=== PATIENT | female | born 1955 | race Caucasian/White ===

== ENCOUNTER 2016-02-23 07:17 | Outpatient (CLI) | payer BC, OTHER ==
[~2016-02-23 07:17] MED LIST: ABILIFY5 MG PO; ADDERALL XR 2020 MG PO; ADDERALL20 MG PO; AMPYRA10 MG PO; Adderall XR PO; BACLOFEN10 MG PO; BACTRIM,SEPT1 TABLET PO; Benadryl IV; CHEWABLE-VITE1 EACH PO; CLEOCIN300 MG PO; COPAXONE40 MG/1 ML SC; CYANOCOBAL1000 MCG/2 IM; CYMBALTA60 MG PO; Copaxone SC; Cymbalta PO; DILAUDID4 MG PO; DURAGESIC75 MCG TD; ENDOCET 5-3251 EACH PO; Ecotrin PO; Feosol PO; K-DUR10 MEQ PO; K-DUR20 MEQ PO; LASIX40 MG PO; LUNESTA2 MG PO; Lasix PO; Levothroid,Synthroid PO; Lioresal PO; MIRAPEX ER0.75 MG PO; MIRAPEX ER2.25 MG PO; MIRAPEX0.25 MG PO; MODAFINIL200 MG PO; MULTIVI; Martinic IM; Micro-K,K-Tab,K-Dur, PO; Mirapex PO; NEXIUM40 MG PO; Nizoral 2% Cream TP; PROVIGIL200 MG PO; SENOKOT S,PE1 TABLET PO; SONATA10 MG PO; THERAGRAN1 TABLET PO; ULTRAM50 MG PO; VITAMIN D250000 UNIT PO; VITAMIN D5000 UNIT PO; Vitamin D PO; Vitamin D, Drisdol PO; vit b12; vit d
== END 2016-02-24 11:59 | disposition home or self-care (01) ==
LOC: NUC 07:17
DX: E05.90 Thyrotoxicosis, unspecified without thyrotoxic crisis or storm (principal)
CPT/HCPCS: 78014; 78999; A9512; A9531

== ENCOUNTER 2016-06-30 16:09 | Inpatient (IN) | payer BC, OTHER ==
[~2016-06-30] VITALS: Ht 172.7 cm; Wt 118.8 kg
[2016-06-30 17:21] LABS: EOSINOPHIL (%) 5.4 % (0-5); EOSINOPHIL COUNT 0.3 K/uL (0-0.3); HEMATOCRIT 43.5 % (36.0-46.0); IMMATURE GRANULOCYTE (%) 0.2 % (0.0-0.7); LYMPHOCYTE COUNT 1.1 K/uL (1.0-2.8); MCH 28.4 PG (29.0-34.0); MCV 88.8 FL (83-99); MONOCYTE (%) 9.1 % (3-12); MONOCYTE COUNT 0.4 K/uL (0-0.8); NEUTROPHIL (%) 62.5 % (45-76); PLATELET COUNT 128 K/uL (156-360); RBC DIS.WIDTH-CV 13.9 % (11.8-14.6); RBC DIS.WIDTH-SD 44.7 % (39-53); WHITE BLOOD COUNT 4.8 K/uL (4.1-10.2)
[2016-06-30 17:32] LABS: CHLORIDE 103 mEq/L (99-109); POTASSIUM 3.2 mEq/L (3.7-5.4); SODIUM 140 mEq/L (136-147)
[2016-06-30 17:33] LABS: MAGNESIUM 1.7 mg/dL (1.3-2.7)
[2016-06-30 17:34] LABS: GLUCOSE 121 mg/dL (70-99)
[2016-06-30 17:36] LABS: ANION GAP 10 MEQ/L (2-14)
[2016-06-30 17:38] LABS: GFR ESTIMATE (CALCULATED) > 59 mL/min/
[2016-06-30 17:39] LABS: UREA NITROGEN (BUN) 23 mg/dL (9-23)
[2016-06-30 17:42] LABS: TROP-I INTERPRETATION NEGATIVE; TROPONIN-I 0.02 ng/mL (0.0-0.30)
[2016-06-30] MEDS ORDERED: CYMBALTA60 MG PO (18:58)
[2016-06-30] MEDS ORDERED: LUNESTA3 MG PO (19:00)
[2016-06-30] MEDS ORDERED: MIRAPEX0.25 MG PO (19:02)
[2016-06-30] MEDS ORDERED: CYANOCOBAL1000 MCG/2 IM (19:03)
[2016-06-30] MEDS ORDERED: VITAMIN D310000 UNI1 PO (19:05)
[2016-06-30] MEDS ORDERED: DILAUDID4 MG PO (19:06)
[2016-06-30] MEDS ORDERED: FOLIC ACID1 MG PO (19:07)
[2016-06-30] MEDS ORDERED: KLOR-CON M2020 MEQ PO ×2 (19:07→19:08)
[2016-06-30 21:40] VITALS: BP 100/58
[2016-06-30 22:36] LABS: INTER. NORMALIZED RATIO 1.1; PROTHROMBIN TIME 10.9 (9.2-11.2); PTT 29.4 (25-32)
[2016-07-01] VITALS (7 sets, daily range): BP systolic 103–124; BP diastolic 52–59
[2016-07-01 07:34] LABS: INTER. NORMALIZED RATIO 1.1; PROTHROMBIN TIME 10.7 (9.2-11.2)
[2016-07-01 07:44] LABS: MCH 28.4 PG (29.0-34.0); MCHC 31.3 G/DL (30.0-36.0); MCV 90.9 FL (83-99); MEAN PLAT.VOLUME 12.2 uM^3 (9.5-12.4); RBC DIS.WIDTH-CV 13.9 % (11.8-14.6); RBC DIS.WIDTH-SD 46.3 % (39-53)
[2016-07-01 07:48] LABS: ALKALINE PHOSPHATASE 115 IU/L (3-129); ANION GAP 9 MEQ/L (2-14); CHLORIDE 102 MEQ/L (99-109); GFR ESTIMATE (CALCULATED) > 59 mL/min/; POTASSIUM 3.4 MEQ/L (3.7-5.4); SAMPLE HEMOLYSIS CHECK 0; SAMPLE ICTERIC CHECK 0; SAMPLE LIPEMIA CHECK 0; SODIUM 141 MEQ/L (136-147); TOTAL BILIRUBIN 0.7 MG/DL (0.0-1.0); UREA NITROGEN (BUN) 18 mg/dL (9-23)
[2016-07-01 07:50] LABS: GLUCOSE 83 mg/dL (70-99)
[2016-07-01 08:17] LABS: PLATELET COUNT 192 K/uL (156-360); RED BLOOD COUNT 3.52 M/uL (3.80-5.20); WHITE BLOOD COUNT 7.2 K/uL (4.1-10.2)
[2016-07-01 08:22] LABS: TROP-I INTERPRETATION NEGATIVE; TROPONIN-I 0.03 ng/mL (0.0-0.30)
[2016-07-01 15:20] LABS: TROP-I INTERPRETATION NEGATIVE; TROPONIN-I 0.02 ng/mL (0.0-0.30)
[2016-07-01 22:54] LABS: TROP-I INTERPRETATION NEGATIVE; TROPONIN-I 0.02 ng/mL (0.0-0.30)
[2016-07-02 04:22] VITALS: BP 118/68
[2016-07-02 07:38] VITALS: BP 112/55
[2016-07-02 07:46] LABS: HEMATOCRIT 30.5 % (36.0-46.0); MCH 29.1 PG (29.0-34.0); MCHC 31.5 G/DL (30.0-36.0); MCV 92.4 FL (83-99); MEAN PLAT.VOLUME 12.5 uM^3 (9.5-12.4); PLATELET COUNT 174 K/uL (156-360); RBC DIS.WIDTH-CV 14.2 % (11.8-14.6); RBC DIS.WIDTH-SD 47.9 % (39-53); WHITE BLOOD COUNT 5.8 K/uL (4.1-10.2)
[2016-07-02 08:39] LABS: INTER. NORMALIZED RATIO 1.1; PROTHROMBIN TIME 11.5 (9.2-11.2)
[2016-07-02] MEDS ORDERED: ELIQUIS5 MG PO ×2 (08:44→09:43)
[2016-07-02] MEDS ORDERED: LOPRESSOR25 MG PO (08:44)
[2016-07-02] MEDS ORDERED: HYDROMORPHONE HC4 MG PO (08:44)
[2016-07-02] MEDS ORDERED: FOLIC ACID1 MG PO (08:44)
[2016-07-02 11:23] VITALS: BP 111/58
== END 2016-07-02 12:04 | disposition home or self-care (01) | DRG 310 ==
LOC: EME 16:09 → EDOF 20:24 → 4EAST 20:24
PROVIDERS: Emergency Medicine; Internal Medicine
DX: I48.1 Persistent atrial fibrillation (principal); G35 Multiple sclerosis; J45.909 Unspecified asthma, uncomplicated; F32.9 Major depressive disorder, single episode, unspecified; M79.7 Fibromyalgia; G43.909 Migraine, unspecified, not intractable, without status migrainosus; K21.9 Gastro-esophageal reflux disease without esophagitis; E05.00 Thyrotoxicosis with diffuse goiter without thyrotoxic crisis or storm; E66.01 Morbid (severe) obesity due to excess calories; I10 Essential (primary) hypertension; Z96.652 Presence of left artificial knee joint; Z86.73 Personal history of transient ischemic attack (TIA), and cerebral infarction without residual deficits; Z98.84 Bariatric surgery status; Z87.891 Personal history of nicotine dependence; Z68.39 Body mass index [BMI] 39.0-39.9, adult
CPT/HCPCS: 71010; 80048; 80053; 83735; 83880; 84439; 84443; 84484; 85025; 85027; 85610; 85730; 93005; 93306; 99281; 99285; J1160; J3475; J7050

== ENCOUNTER 2016-09-02 07:32 | Day surgery (SDC) | payer OTHER, BC ==
[~2016-09-02] VITALS: Ht 172.7 cm; Wt 113.4 kg
[~2016-09-02 07:32] MED LIST changes: +ELIQUIS5 MG PO; +FOLIC ACID1 MG PO; +HYDROMORPHONE HC4 MG PO; +KLOR-CON M2020 MEQ PO; +LOPRESSOR25 MG PO; +LUNESTA3 MG PO; +METOPROLOL TART25 MG PO; +TERBINAFINE HC250 MG PO; +VITAMIN D310000 UNI1 PO
== END 2016-09-02 15:30 | disposition home or self-care (01) ==
LOC: CATH 07:32
DX: I42.0 Dilated cardiomyopathy (principal); I48.0 Paroxysmal atrial fibrillation; I27.2 Other secondary pulmonary hypertension; I34.0 Nonrheumatic mitral (valve) insufficiency; I36.1 Nonrheumatic tricuspid (valve) insufficiency; I11.0 Hypertensive heart disease with heart failure; I50.40 Unspecified combined systolic (congestive) and diastolic (congestive) heart failure; E66.9 Obesity, unspecified; Z68.39 Body mass index [BMI] 39.0-39.9, adult; G35 Multiple sclerosis; D64.9 Anemia, unspecified; G47.33 Obstructive sleep apnea (adult) (pediatric); Z98.84 Bariatric surgery status; Z79.01 Long term (current) use of anticoagulants; Z82.49 Family history of ischemic heart disease and other diseases of the circulatory system
CPT/HCPCS: 93005; C1769; C1887; C1894; J1644; J2250; J3010

== ENCOUNTER 2016-09-24 08:57 | Day surgery (SDC) | payer OTHER, BC ==
[~2016-09-24] VITALS: Ht 172.7 cm; Wt 113.0 kg
[~2016-09-24 08:57] MED LIST changes: +MULTAQ400 MG PO
== END 2016-09-24 11:38 | disposition home or self-care (01) ==
LOC: CATH 08:57
PROC: 5A2204Z Restoration of Cardiac Rhythm, Single (ICD-10-PCS; principal; 2016-09-24)
DX: I48.1 Persistent atrial fibrillation (principal); I48.0 Paroxysmal atrial fibrillation; I42.9 Cardiomyopathy, unspecified; I27.2 Other secondary pulmonary hypertension; I11.0 Hypertensive heart disease with heart failure; I50.42 Chronic combined systolic (congestive) and diastolic (congestive) heart failure; G47.33 Obstructive sleep apnea (adult) (pediatric); Z79.01 Long term (current) use of anticoagulants; E66.9 Obesity, unspecified; Z68.38 Body mass index [BMI] 38.0-38.9, adult
CPT/HCPCS: 93005; J2250

== ENCOUNTER 2017-02-01 01:46 | Observation (INO) | payer BC, OTHER ==
[~2017-02-01] VITALS: Ht 172.7 cm; Wt 116.2 kg
[2017-02-01 03:01] LABS: EOSINOPHIL (%) 5.4 % (0-5); EOSINOPHIL COUNT 0.4 K/uL (0-0.3); HEMATOCRIT 31.5 % (36.0-46.0); IMMATURE GRANULOCYTE (%) 0.4 % (0.0-0.7); INSTRUMENT ABS NEUTROPHIL CT 3.4 K/uL; LYMPHOCYTE COUNT 3.3 K/uL (1.0-2.8); MCH 30.7 PG (29.0-34.0); MCHC 31.7 G/DL (30.0-36.0); MCV 96.6 FL (83-99); MEAN PLAT.VOLUME 11.6 uM^3 (9.5-12.4); MONOCYTE (%) 10.8 % (3-12); MONOCYTE COUNT 0.9 K/uL (0-0.8); NEUTROPHIL COUNT 3.4 K/uL (1.8-6.4); NRBC (%) 0.5 /100 WBC (0-0); PLATELET COUNT 167 K/uL (156-360); RBC DIS.WIDTH-CV 14.3 % (11.8-14.6); RBC DIS.WIDTH-SD 50.4 % (39-53); RED BLOOD COUNT 3.26 M/uL (3.80-5.20)
[2017-02-01 03:12] LABS: CHLORIDE 108 mEq/L (99-109); POTASSIUM 3.9 mEq/L (3.7-5.4)
[2017-02-01 03:13] LABS: SODIUM 140 mEq/L (136-147)
[2017-02-01 03:14] LABS: GLUCOSE 96 mg/dL (70-99)
[2017-02-01 03:16] LABS: ANION GAP 8 MEQ/L (2-14)
[2017-02-01 03:18] LABS: GFR ESTIMATE (CALCULATED) > 59 mL/min/
[2017-02-01 03:19] LABS: UREA NITROGEN (BUN) 21 mg/dL (9-23)
[2017-02-01] MEDS ORDERED: ILEVRO1.7 ML RIGHT EYE (07:42)
[2017-02-01] MEDS ORDERED: KETOCONAZOLE60 GM TP (07:43)
[2017-02-01] MEDS ORDERED: PROMETHAZINE HC25 M1 PO (07:43)
[2017-02-01] MEDS ORDERED: INHALER (07:58)
[2017-02-01 12:50] VITALS: BP 105/53
[2017-02-01 17:08] VITALS: BP 116/55
[2017-02-01 19:31] VITALS: BP 93/55
== END 2017-02-01 20:17 | disposition home or self-care (01) ==
LOC: EME 01:46 → EDOF 05:22 → ENRESERV 05:34 → EDOF 08:07 → 5WEST 08:38
PROVIDERS: Emergency Medicine
DX: T17.998A Other foreign object in respiratory tract, part unspecified causing other injury, initial encounter (principal); J18.9 Pneumonia, unspecified organism; R07.9 Chest pain, unspecified; G35 Multiple sclerosis; E05.00 Thyrotoxicosis with diffuse goiter without thyrotoxic crisis or storm; I10 Essential (primary) hypertension; E66.9 Obesity, unspecified; Z98.84 Bariatric surgery status; I48.0 Paroxysmal atrial fibrillation; M19.90 Unspecified osteoarthritis, unspecified site; Z79.01 Long term (current) use of anticoagulants; G25.81 Restless legs syndrome; F32.9 Major depressive disorder, single episode, unspecified; F41.9 Anxiety disorder, unspecified; G47.419 Narcolepsy without cataplexy; G47.00 Insomnia, unspecified; G89.4 Chronic pain syndrome
CPT/HCPCS: 71020; 80048; 83605; 85025; 87040; 93005; 94640; 94640 76; 94760; 94799; 99202; 99281; 99285; G0378; J0696

== ENCOUNTER 2017-09-04 16:12 | Inpatient (IN) | payer BC, OTHER ==
[~2017-09-04] VITALS: Ht 172.7 cm; Wt 102.0 kg
[~2017-09-04 16:12] MED LIST changes: +ILEVRO1.7 ML RIGHT EYE; +INHALER; +KETOCONAZOLE60 GM TP; +PROMETHAZINE HC25 M1 PO
[2017-09-04 17:37] LABS: BILIRUBIN NEGATIVE; BLOOD NEGATIVE; COLOR YELLOW ((YELLOW)); GLUCOSE (STRIP) NEGATIVE; KETONES NEGATIVE; LEUKOCYTES SMALL; NITRITE POSITIVE; PROTEIN (STRIP) NEGATIVE; SPECIFIC GRAVITY 1.005 (1.000-1.030); UROBILINOGEN 0.2 MG/DL (0.2-1.0)
[2017-09-04 17:38] LABS: APPEARANCE SL.HAZY ((CLEAR))
[2017-09-04 17:41] LABS: EPITHELIAL CELLS RARE /HPF; MUCUS TRACE /LPF; RED BLOOD CELLS 0-5 /HPF (0-5); UCUL ADDED? YES
[2017-09-04 18:00] LABS: BACTERIA 2+ /HPF
[2017-09-04 18:03] LABS: HEMATOCRIT 32.6 % (36.0-46.0); HEMOGLOBIN 11.7 G/DL (11.9-15.5); MCH 28.7 PG (29.0-34.0); MCHC 35.9 G/DL (30.0-36.0); MCV 79.9 FL (83-99); PLATELET COUNT 195 K/uL (156-360); RBC DIS.WIDTH-CV 14.7 % (11.8-14.6); RBC DIS.WIDTH-SD 42.5 % (39-53); RED BLOOD COUNT 4.08 M/uL (3.80-5.20); WHITE BLOOD COUNT 11.5 K/uL (4.1-10.2)
[2017-09-04 18:05] LABS: INTER. NORMALIZED RATIO 1.3
[2017-09-04 18:08] LABS: PTT 30.6 SEC (25-37)
[2017-09-04 18:14] LABS: ALBUMIN 2.8 g/dL (3.2-4.8); CHLORIDE 91 mEq/L (99-109); POTASSIUM 2.6 mEq/L (3.7-5.4); SODIUM 130 mEq/L (136-147)
[2017-09-04 18:16] LABS: GLUCOSE 79 mg/dL (70-99); TOTAL PROTEIN 5.4 g/dL (6.4-8.3)
[2017-09-04 18:18] LABS: TOTAL BILIRUBIN 1.1 mg/dL (0.0-1.0)
[2017-09-04 18:20] LABS: ALKALINE PHOSPHATASE 113 IU/L (3-129); CREATININE 1.4 mg/dL (0.6-1.3); GFR ESTIMATE (CALCULATED) 41 mL/min/
[2017-09-04 18:21] LABS: UREA NITROGEN (BUN) 23 mg/dL (9-23)
[2017-09-04 18:22] LABS: AST (GOT) 30 IU/L (2-34)
[2017-09-04 18:23] LABS: ALT (GPT) 34 IU/L (3-49)
[2017-09-05 02:35] VITALS: BP 127/56
[2017-09-05 08:41] VITALS: BP 136/64
[2017-09-05 13:35] VITALS: BP 128/69
[2017-09-05 17:16] VITALS: BP 102/58
[2017-09-05 19:48] VITALS: BP 106/55
[2017-09-06] VITALS (7 sets, daily range): BP systolic 95–127; BP diastolic 53–66
[2017-09-06 06:23] LABS: ALBUMIN 2.6 G/DL (3.2-4.8); ALKALINE PHOSPHATASE 79 IU/L (3-129); ALT (GPT) 26 IU/L (3-49); AST (GOT) 20 IU/L (2-34); CHLORIDE 100 MEQ/L (99-109); CREATININE 1.1 MG/DL (0.6-1.3); GFR ESTIMATE (CALCULATED) 54 mL/min/; GLUCOSE 78 mg/dL (70-99); SODIUM 132 MEQ/L (136-147); TOTAL BILIRUBIN 0.9 MG/DL (0.0-1.0); TOTAL PROTEIN 4.9 G/DL (6.4-8.3); UREA NITROGEN (BUN) 18 mg/dL (9-23)
[2017-09-06 06:27] LABS: HEMATOCRIT 28.3 % (36.0-46.0); MCH 27.7 PG (29.0-34.0); MCHC 34.3 G/DL (30.0-36.0); MCV 80.9 FL (83-99); PLATELET COUNT 169 K/uL (156-360); RBC DIS.WIDTH-CV 15.2 % (11.8-14.6); RBC DIS.WIDTH-SD 43.7 % (39-53); WHITE BLOOD COUNT 8.7 K/uL (4.1-10.2)
[2017-09-06 06:31] LABS: HEMOGLOBIN 9.7 G/DL (11.9-15.5)
[2017-09-06 06:34] LABS: POTASSIUM 3.3 MEQ/L (3.7-5.4)
[2017-09-06 15:31] LABS: IRON 88 MCG/DL (35-150)
[2017-09-06 15:48] LABS: FERRITIN 168 NG/ML (10-291)
[2017-09-07 01:05] VITALS: BP 101/55
[2017-09-07 03:08] VITALS: BP 113/53
[2017-09-07 05:46] LABS: HEMATOCRIT 28.3 % (36.0-46.0); HEMOGLOBIN 9.5 G/DL (11.9-15.5); MCH 27.6 PG (29.0-34.0); MCHC 33.6 G/DL (30.0-36.0); MCV 82.3 FL (83-99); PLATELET COUNT 160 K/uL (156-360); RBC DIS.WIDTH-CV 15.3 % (11.8-14.6); RBC DIS.WIDTH-SD 45.2 % (39-53); RED BLOOD COUNT 3.44 M/uL (3.80-5.20); WHITE BLOOD COUNT 7.3 K/uL (4.1-10.2)
[2017-09-07 06:11] LABS: CHLORIDE 104 MEQ/L (99-109); GFR ESTIMATE (CALCULATED) > 59 mL/min/; GLUCOSE 68 mg/dL (70-99); SODIUM 133 MEQ/L (136-147); UREA NITROGEN (BUN) 16 mg/dL (9-23)
[2017-09-07 06:19] LABS: POTASSIUM 4.6 MEQ/L (3.7-5.4)
[2017-09-07 09:27] VITALS: BP 112/60
[2017-09-07 12:28] VITALS: BP 90/47
[2017-09-07 16:01] VITALS: BP 98/50
[2017-09-07 21:21] VITALS: BP 108/59
[2017-09-08 00:02] VITALS: BP 108/53
[2017-09-08 03:25] VITALS: BP 113/60
[2017-09-08 05:28] LABS: BASOPHIL (%) 0.8 % (0-1); BASOPHIL COUNT 0.1 K/uL (0-0.1); EOSINOPHIL (%) 4.3 % (0-5); EOSINOPHIL COUNT 0.3 K/uL (0-0.3); HEMATOCRIT 27.7 % (36.0-46.0); HEMOGLOBIN 9.2 G/DL (11.9-15.5); IMMATURE GRANULOCYTE (%) 0.3 % (0.0-0.7); LYMPHOCYTE (%) 21.7 % (15-42); LYMPHOCYTE COUNT 1.7 K/uL (1.0-2.8); MCHC 33.2 G/DL (30.0-36.0); MCV 84.2 FL (83-99); MONOCYTE (%) 14.1 % (3-12); MONOCYTE COUNT 1.1 K/uL (0-0.8); NEUTROPHIL (%) 58.8 % (45-76); NEUTROPHIL COUNT 4.5 K/uL (1.8-6.4); PLATELET COUNT 164 K/uL (156-360); RBC DIS.WIDTH-CV 15.6 % (11.8-14.6); RED BLOOD COUNT 3.29 M/uL (3.80-5.20); WHITE BLOOD COUNT 7.6 K/uL (4.1-10.2)
[2017-09-08 06:50] LABS: ALBUMIN 2.5 G/DL (3.2-4.8); ALKALINE PHOSPHATASE 74 IU/L (3-129); ALT (GPT) 25 IU/L (3-49); AST (GOT) 20 IU/L (2-34); CHLORIDE 105 MEQ/L (99-109); GFR ESTIMATE (CALCULATED) > 59 mL/min/; GLUCOSE 73 mg/dL (70-99); SODIUM 136 MEQ/L (136-147); TOTAL BILIRUBIN 0.8 MG/DL (0.0-1.0); TOTAL PROTEIN 4.5 G/DL (6.4-8.3); UREA NITROGEN (BUN) 13 mg/dL (9-23)
[2017-09-08 07:59] LABS: THYROTROPIN (TSH) 4.3 MIU/L (0.4-5.5)
[2017-09-08 09:19] VITALS: BP 104/58
[2017-09-08 11:53] VITALS: BP 98/56
[2017-09-08 16:59] VITALS: BP 108/56
[2017-09-08 19:00] VITALS: BP 102/59
[2017-09-08] MEDS ORDERED: ONDANSETRON ODT4 MG PO (20:20)
[2017-09-08] MEDS ORDERED: PANTOPRAZOLE SO40 MG PO (20:20)
[2017-09-08] MEDS ORDERED: ZOLPIDEM TARTRAT5 MG PO (20:20)
== END 2017-09-08 21:38 | disposition home or self-care (01) | DRG 309 ==
LOC: EME 16:12 → EDOF 09-05 00:14 → 4EAST 09-05 00:14 → ENRESERV 09-05 00:16 → 4EAST 09-05 01:56
PROVIDERS: Family Medicine; Internal Medicine; Internal Medicine Gastroenterology; Physician Assistant
PROC: 0DJ08ZZ Inspection of Upper Intestinal Tract, Via Natural or Artificial Opening Endoscopic (ICD-10-PCS; principal; 2017-09-07)
DX: I48.0 Paroxysmal atrial fibrillation (principal); E87.1 Hypo-osmolality and hyponatremia; N17.9 Acute kidney failure, unspecified; N39.0 Urinary tract infection, site not specified; K50.00 Crohn's disease of small intestine without complications; K91.2 Postsurgical malabsorption, not elsewhere classified; E86.0 Dehydration; E87.6 Hypokalemia; G35 Multiple sclerosis; G47.33 Obstructive sleep apnea (adult) (pediatric); I36.1 Nonrheumatic tricuspid (valve) insufficiency; I10 Essential (primary) hypertension; I27.20 Pulmonary hypertension, unspecified; I48.2 Chronic atrial fibrillation; I42.9 Cardiomyopathy, unspecified; K21.0 Gastro-esophageal reflux disease with esophagitis; E66.9 Obesity, unspecified; D64.9 Anemia, unspecified; J45.909 Unspecified asthma, uncomplicated; K44.9 Diaphragmatic hernia without obstruction or gangrene; K52.9 Noninfective gastroenteritis and colitis, unspecified; R29.6 Repeated falls; R23.3 Spontaneous ecchymoses; Z79.01 Long term (current) use of anticoagulants; Z87.891 Personal history of nicotine dependence; Z98.84 Bariatric surgery status; Z88.5 Allergy status to narcotic agent; Z68.34 Body mass index [BMI] 34.0-34.9, adult
CPT/HCPCS: 71275; 74177; 80048; 80053; 81003; 82728; 83540; 83630; 84439; 84443; 85025; 85027; 85610; 85730; 87040; 87077; 87086; 87177; 87186; 87329; 87493; 87506; 93005; 99281; 99285; J0692; J0696; J1170; J2405; J2765; J3420; J3480; J7030

== ENCOUNTER 2017-09-12 18:54 | Inpatient (IN) | payer BC, OTHER ==
[~2017-09-12] VITALS: Ht 167.6 cm; Wt 102.6 kg
[~2017-09-12 18:54] MED LIST changes: +ONDANSETRON ODT4 MG PO; +PANTOPRAZOLE SO40 MG PO; +ZOLPIDEM TARTRAT5 MG PO
[2017-09-12 19:47] LABS: BASE EXCESS -4.3 mEq/L (-3 to +3); BICARBONATE 21.6 mEq/L (22-26); CARBOXY HGB 0 % (0-5); COMMENTS - BLOOD GASES C+; DEVICE NO DEVICE; FI02 21 %; METHEMOGLOBIN 0 % (0-1.5); PCO2 42 mm Hg (35-45); PO2 73 mm Hg (80-100); SITE RB; pH 7.32 (7.35-7.45)
[2017-09-12 19:59] LABS: BASOPHIL (%) 0.5 % (0-1); EOSINOPHIL (%) 0.7 % (0-5); EOSINOPHIL COUNT 0.1 K/uL (0-0.3); HEMATOCRIT 29.1 % (36.0-46.0); HEMOGLOBIN 10.5 G/DL (11.9-15.5); IMMATURE GRANULOCYTE (%) 0.5 % (0.0-0.7); LYMPHOCYTE (%) 11.4 % (15-42); LYMPHOCYTE COUNT 0.9 K/uL (1.0-2.8); MCH 28.7 PG (29.0-34.0); MCHC 36.1 G/DL (30.0-36.0); MCV 79.5 FL (83-99); MONOCYTE (%) 10.3 % (3-12); MONOCYTE COUNT 0.8 K/uL (0-0.8); NEUTROPHIL (%) 76.6 % (45-76); NEUTROPHIL COUNT 6.2 K/uL (1.8-6.4); PLATELET COUNT 180 K/uL (156-360); RBC DIS.WIDTH-CV 16.2 % (11.8-14.6); RED BLOOD COUNT 3.66 M/uL (3.80-5.20)
[2017-09-12 20:07] LABS: ALBUMIN 2.7 g/dL (3.2-4.8); CHLORIDE 109 mEq/L (99-109); PTT 31.2 SEC (25-37); SODIUM 140 mEq/L (136-147)
[2017-09-12 20:08] LABS: POTASSIUM 3.9 mEq/L (3.7-5.4)
[2017-09-12 20:09] LABS: GLUCOSE 75 mg/dL (70-99); TOTAL PROTEIN 4.9 g/dL (6.4-8.3)
[2017-09-12 20:11] LABS: TOTAL BILIRUBIN 0.9 mg/dL (0.0-1.0)
[2017-09-12 20:12] LABS: SERUM ETHYL ALCOHOL < 10 mg/dL
[2017-09-12 20:12] LABS: AMPHETAMINE NEGATIVE (500 ng/mL); BARBITURATES NEGATIVE (200 ng/mL); BENZODIAZEPINES NEGATIVE (150 ng/mL); BUPRENORPHINE NEGATIVE (10 ng/mL); COCAINE NEGATIVE (150 ng/mL); METHADONE NEGATIVE (200 ng/mL); METHAMPHETAMINE NEGATIVE (500 ng/mL); OPIATES (MORPHINE) PRESUMPTIVE POSITIVE (100 ng/mL); OXYCODONE NEGATIVE (100 ng/mL); PHENCYCLIDINE NEGATIVE (25 ng/mL); PROPOXYPHENE NEGATIVE (300 ng/mL); THC CANNABINOIDS NEGATIVE (50 ng/mL); TRICYCLIC ANTIDEPRESSANTS NEGATIVE (300 ng/mL)
[2017-09-12 20:13] LABS: ALKALINE PHOSPHATASE 107 IU/L (3-129); CREATININE 1.3 mg/dL (0.6-1.3); GFR ESTIMATE (CALCULATED) 44 mL/min/
[2017-09-12 20:13] LABS: APPEARANCE CLEAR ((CLEAR)); BILIRUBIN NEGATIVE; BLOOD NEGATIVE; COLOR YELLOW ((YELLOW)); GLUCOSE (STRIP) NEGATIVE; KETONES NEGATIVE; LEUKOCYTES NEGATIVE; NITRITE NEGATIVE; PROTEIN (STRIP) NEGATIVE; SPECIFIC GRAVITY 1.012 (1.000-1.030); UCUL ADDED? NO; UROBILINOGEN 0.2 MG/DL (0.2-1.0)
[2017-09-12 20:14] LABS: AST (GOT) 42 IU/L (2-34); UREA NITROGEN (BUN) 15 mg/dL (9-23)
[2017-09-12 20:16] LABS: ALT (GPT) 33 IU/L (3-49)
[2017-09-12 20:19] LABS: TROP-I INTERPRETATION NEGATIVE; TROPONIN-I 0.01 ng/mL (0.0-0.30)
[2017-09-12 20:56] LABS: THYROTROPIN (TSH) 8.2 MIU/L (0.4-5.5)
[2017-09-12] MEDS ORDERED: KLOR-CON M2020 MEQ PO (22:51)
[2017-09-12 23:40] VITALS: BP 116/55
[2017-09-13 04:00] VITALS: BP 102/67
[2017-09-13 08:56] VITALS: BP 109/53
[2017-09-13 12:21] VITALS: BP 113/87
[2017-09-13 15:27] VITALS: BP 110/55
[2017-09-13 19:25] VITALS: BP 103/58
[2017-09-14] VITALS: BP 107/55
[2017-09-14 05:44] LABS: HEMATOCRIT 28.1 % (36.0-46.0); HEMOGLOBIN 9.8 G/DL (11.9-15.5); MCH 28.6 PG (29.0-34.0); MCHC 34.9 G/DL (30.0-36.0); MCV 81.9 FL (83-99); PLATELET COUNT 174 K/uL (156-360); RBC DIS.WIDTH-CV 17.2 % (11.8-14.6); RBC DIS.WIDTH-SD 48.4 % (39-53); RED BLOOD COUNT 3.43 M/uL (3.80-5.20); WHITE BLOOD COUNT 6.6 K/uL (4.1-10.2)
[2017-09-14 06:11] LABS: CHLORIDE 112 MEQ/L (99-109); CREATININE 1.1 MG/DL (0.6-1.3); GFR ESTIMATE (CALCULATED) 54 mL/min/; GLUCOSE 73 mg/dL (70-99); POTASSIUM 3.6 MEQ/L (3.7-5.4); SODIUM 140 MEQ/L (136-147); UREA NITROGEN (BUN) 13 mg/dL (9-23)
[2017-09-14 07:49] VITALS: BP 95/52
[2017-09-14 12:12] VITALS: BP 90/53
[2017-09-14 15:26] VITALS: BP 93/50
[2017-09-14 23:38] VITALS: BP 102/58
[2017-09-15 00:59] LABS: APPEARANCE CLEAR ((CLEAR)); BILIRUBIN NEGATIVE; BLOOD NEGATIVE; COLOR YELLOW ((YELLOW)); GLUCOSE (STRIP) NEGATIVE; KETONES NEGATIVE; LEUKOCYTES NEGATIVE; NITRITE NEGATIVE; PROTEIN (STRIP) NEGATIVE; SPECIFIC GRAVITY 1.014 (1.000-1.030); UROBILINOGEN 0.2 MG/DL (0.2-1.0)
[2017-09-15 04:11] VITALS: BP 112/57
[2017-09-15 05:47] LABS: BASOPHIL (%) 0.4 % (0-1); EOSINOPHIL (%) 0.2 % (0-5); HEMATOCRIT 30.7 % (36.0-46.0); HEMOGLOBIN 10.5 G/DL (11.9-15.5); IMMATURE GRANULOCYTE (%) 0.4 % (0.0-0.7); LYMPHOCYTE (%) 8.8 % (15-42); LYMPHOCYTE COUNT 0.5 K/uL (1.0-2.8); MCH 28.5 PG (29.0-34.0); MCHC 34.2 G/DL (30.0-36.0); MCV 83.2 FL (83-99); MONOCYTE (%) 4.4 % (3-12); MONOCYTE COUNT 0.2 K/uL (0-0.8); NEUTROPHIL (%) 85.8 % (45-76); NEUTROPHIL COUNT 4.7 K/uL (1.8-6.4); PLATELET COUNT 181 K/uL (156-360); RBC DIS.WIDTH-CV 17.5 % (11.8-14.6); RBC DIS.WIDTH-SD 50.4 % (39-53); RED BLOOD COUNT 3.69 M/uL (3.80-5.20); WHITE BLOOD COUNT 5.5 K/uL (4.1-10.2)
[2017-09-15 06:13] LABS: ALBUMIN 2.5 G/DL (3.2-4.8); ALKALINE PHOSPHATASE 88 IU/L (3-129); ALT (GPT) 32 IU/L (3-49); AST (GOT) 29 IU/L (2-34); CHLORIDE 110 MEQ/L (99-109); CREATININE 1.2 MG/DL (0.6-1.3); GFR ESTIMATE (CALCULATED) 49 mL/min/; GLUCOSE 89 mg/dL (70-99); POTASSIUM 4.1 MEQ/L (3.7-5.4); SODIUM 140 MEQ/L (136-147); TOTAL PROTEIN 4.8 G/DL (6.4-8.3); UREA NITROGEN (BUN) 11 mg/dL (9-23)
[2017-09-15 06:36] LABS: TOTAL BILIRUBIN 0.6 MG/DL (0.0-1.0)
[2017-09-15 08:58] VITALS: BP 108/53
[2017-09-15 11:47] VITALS: BP 106/58
[2017-09-15 15:26] VITALS: BP 99/55
[2017-09-15 19:45] VITALS: BP 117/62
[2017-09-15 23:40] VITALS: BP 100/51
[2017-09-16 04:24] VITALS: BP 113/57
[2017-09-16 07:50] VITALS: BP 106/53
[2017-09-16 11:41] VITALS: BP 104/54
[2017-09-16 16:00] VITALS: BP 101/55
[2017-09-16 20:13] VITALS: BP 114/56
[2017-09-16 23:45] VITALS: BP 124/65
[2017-09-17 04:02] VITALS: BP 128/62
[2017-09-17 05:52] LABS: HEMATOCRIT 30.8 % (36.0-46.0); HEMOGLOBIN 10.4 G/DL (11.9-15.5); MCH 27.9 PG (29.0-34.0); MCHC 33.8 G/DL (30.0-36.0); MCV 82.6 FL (83-99); PLATELET COUNT 194 K/uL (156-360); RBC DIS.WIDTH-SD 50.7 % (39-53); RED BLOOD COUNT 3.73 M/uL (3.80-5.20); WHITE BLOOD COUNT 8.3 K/uL (4.1-10.2)
[2017-09-17 06:08] LABS: CHLORIDE 109 MEQ/L (99-109); CREATININE 1.3 MG/DL (0.6-1.3); GFR ESTIMATE (CALCULATED) 44 mL/min/; GLUCOSE 85 mg/dL (70-99); POTASSIUM 4.5 MEQ/L (3.7-5.4); SODIUM 137 MEQ/L (136-147); UREA NITROGEN (BUN) 15 mg/dL (9-23)
[2017-09-17 07:49] VITALS: BP 124/64
[2017-09-17 11:47] VITALS: BP 107/57
[2017-09-17 15:41] VITALS: BP 110/65
[2017-09-17 19:32] VITALS: BP 112/69
[2017-09-18] VITALS (7 sets, daily range): BP systolic 114–134; BP diastolic 55–73
[2017-09-19 04:00] VITALS: BP 126/70
[2017-09-19 04:22] LABS: BASOPHIL (%) 0.1 % (0-1); EOSINOPHIL (%) 0 % (0-5); HEMATOCRIT 31.1 % (36.0-46.0); HEMOGLOBIN 10.9 G/DL (11.9-15.5); IMMATURE GRANULOCYTE (%) 0.8 % (0.0-0.7); LYMPHOCYTE (%) 8.2 % (15-42); LYMPHOCYTE COUNT 0.6 K/uL (1.0-2.8); MCH 28.4 PG (29.0-34.0); MONOCYTE (%) 5.6 % (3-12); MONOCYTE COUNT 0.4 K/uL (0-0.8); NEUTROPHIL (%) 85.3 % (45-76); NEUTROPHIL COUNT 6.2 K/uL (1.8-6.4); PLATELET COUNT 182 K/uL (156-360); RBC DIS.WIDTH-CV 17.9 % (11.8-14.6); RBC DIS.WIDTH-SD 50.4 % (39-53); RED BLOOD COUNT 3.84 M/uL (3.80-5.20); WHITE BLOOD COUNT 7.3 K/uL (4.1-10.2)
[2017-09-19 04:30] LABS: ALBUMIN 2.8 g/dL (3.2-4.8); CHLORIDE 110 mEq/L (99-109); SODIUM 134 mEq/L (136-147)
[2017-09-19 04:32] LABS: GLUCOSE 94 mg/dL (70-99); TOTAL PROTEIN 5.2 g/dL (6.4-8.3)
[2017-09-19 04:36] LABS: ALKALINE PHOSPHATASE 104 IU/L (3-129); CREATININE 1.5 mg/dL (0.6-1.3); GFR ESTIMATE (CALCULATED) 38 mL/min/
[2017-09-19 04:37] LABS: UREA NITROGEN (BUN) 19 mg/dL (9-23)
[2017-09-19 04:39] LABS: ALT (GPT) 34 IU/L (3-49); AST (GOT) 15 IU/L (2-34); TOTAL BILIRUBIN 0.4 mg/dL (0.0-1.0)
[2017-09-19 07:15] VITALS: BP 131/62
[2017-09-19 11:23] VITALS: BP 113/63
[2017-09-19 15:45] VITALS: BP 115/57
[2017-09-19 19:56] VITALS: BP 111/57
[2017-09-20 00:29] VITALS: BP 116/54
[2017-09-20 04:32] VITALS: BP 128/60
[2017-09-20 07:56] VITALS: BP 120/59
[2017-09-20 15:47] VITALS: BP 124/60
[2017-09-20] MEDS ORDERED: PREDNISONE5 M1 PO (16:55)
== END 2017-09-20 18:56 | DRG 442 ==
LOC: EME 18:54 → EDOF 22:11 → 4SOUTH 22:11 → ENRESERV 22:12 → 4SOUTH 23:23
PROVIDERS: Emergency Medicine; Family Medicine; Internal Medicine
DX: K72.90 Hepatic failure, unspecified without coma (principal); E87.2 Acidosis; E72.20 Disorder of urea cycle metabolism, unspecified; G35 Multiple sclerosis; I48.0 Paroxysmal atrial fibrillation; I07.1 Rheumatic tricuspid insufficiency; J44.9 Chronic obstructive pulmonary disease, unspecified; I10 Essential (primary) hypertension; D64.9 Anemia, unspecified; K21.9 Gastro-esophageal reflux disease without esophagitis; M79.7 Fibromyalgia; G25.81 Restless legs syndrome; K59.00 Constipation, unspecified; E66.01 Morbid (severe) obesity due to excess calories; Z68.36 Body mass index [BMI] 36.0-36.9, adult; Z87.891 Personal history of nicotine dependence; Z98.84 Bariatric surgery status
CPT/HCPCS: 36600; 70450; 70551; 71045; 80048; 80053; 81003; 82140; 83605; 84439; 84443; 84484; 84999; 85025; 85027; 85610; 85730; 87040; 87086; 87106; 87493; 93005; 95819; 99281; 99285; G0378; G0480; J1650; J2060; J2920; J3420; J7040

== ENCOUNTER 2017-10-06 10:55 | Inpatient (IN) | payer BC, OTHER ==
[~2017-10-06] VITALS: Ht 172.7 cm; Wt 109.0 kg
[~2017-10-06 10:55] MED LIST changes: +BACTRIM,SEPT1 TABLE1 PO; +BISAC-EVAC10 MG PR; +ESZOPICLONE2 MG PO; +FLEET ENEMA-AD118 ML PR; +KRISTALOSE10 GM PO; +LEVOTHYROXINE25 MCG PO; +MILK OF MAGN PO; +OMEPRAZOLE20 MG PO; +PREDNISONE5 M1 PO; +VALTREX50 MG/ML PO
[2017-10-06 11:45] LABS: CHLORIDE 101 mEq/L (99-109); SODIUM 132 mEq/L (136-147)
[2017-10-06 11:47] LABS: GLUCOSE 94 mg/dL (70-99); TOTAL PROTEIN 5.4 g/dL (6.4-8.3)
[2017-10-06 11:48] LABS: POTASSIUM 6.9 mEq/L (3.7-5.4)
[2017-10-06 11:49] LABS: TOTAL BILIRUBIN 0.6 mg/dL (0.0-1.0)
[2017-10-06 11:50] LABS: ALKALINE PHOSPHATASE 92 IU/L (3-129)
[2017-10-06 11:51] LABS: CREATININE 2.9 mg/dL (0.6-1.3); GFR ESTIMATE (CALCULATED) 18 mL/min/
[2017-10-06 11:52] LABS: AST (GOT) 17 IU/L (2-34); UREA NITROGEN (BUN) 39 mg/dL (9-23)
[2017-10-06 11:53] LABS: ALT (GPT) 32 IU/L (3-49)
[2017-10-06 11:59] LABS: TROP-I INTERPRETATION NEGATIVE; TROPONIN-I 0.01 ng/mL (0.0-0.30)
[2017-10-06 12:28] LABS: BASOPHIL (%) 0.2 % (0-1); EOSINOPHIL (%) 0 % (0-5); HEMATOCRIT 30.1 % (36.0-46.0); HEMOGLOBIN 10.7 G/DL (11.9-15.5); IMMATURE GRANULOCYTE (%) 1.3 % (0.0-0.7); LYMPHOCYTE (%) 5.6 % (15-42); LYMPHOCYTE COUNT 0.7 K/uL (1.0-2.8); MCH 29.6 PG (29.0-34.0); MCHC 35.5 G/DL (30.0-36.0); MCV 83.1 FL (83-99); MONOCYTE (%) 5.6 % (3-12); MONOCYTE COUNT 0.7 K/uL (0-0.8); NEUTROPHIL (%) 87.3 % (45-76); NEUTROPHIL COUNT 10.3 K/uL (1.8-6.4); RBC DIS.WIDTH-CV 18.6 % (11.8-14.6); RBC DIS.WIDTH-SD 45.8 % (39-53); RED BLOOD COUNT 3.62 M/uL (3.80-5.20); WHITE BLOOD COUNT 11.8 K/uL (4.1-10.2)
[2017-10-06 12:33] LABS: CHLORIDE 101 mEq/L (99-109); SODIUM 132 mEq/L (136-147)
[2017-10-06 12:34] LABS: GLUCOSE 95 mg/dL (70-99)
[2017-10-06 12:35] LABS: POTASSIUM 6.9 mEq/L (3.7-5.4)
[2017-10-06 12:38] LABS: CREATININE 2.8 mg/dL (0.6-1.3); GFR ESTIMATE (CALCULATED) 18 mL/min/
[2017-10-06 12:39] LABS: UREA NITROGEN (BUN) 39 mg/dL (9-23)
[2017-10-06] MEDS ORDERED: BACLOFEN10 MG PO (13:10)
[2017-10-06] MEDS ORDERED: MIRAPEX0.5 MG PO (13:11)
[2017-10-06] MEDS ORDERED: CYMBALTA60 MG PO (13:17)
[2017-10-06] MEDS ORDERED: MIRAPEX0.25 MG PO (13:20)
[2017-10-06 13:23] LABS: PLAT.SUFFICIENCY DECREASED; PLATELET COUNT 121 K/uL (156-360)
[2017-10-06] MEDS ORDERED: ERGOCALCIF50000 UNIT PO (13:23)
[2017-10-06] MEDS ORDERED: K-DUR20 MEQ PO (13:24)
[2017-10-06] MEDS ORDERED: DILAUDID4 MG PO (13:25)
[2017-10-06] MEDS ORDERED: LOPRESSOR25 MG PO (13:25)
[2017-10-06] MEDS ORDERED: ZOFRAN8 MG PO (13:26)
[2017-10-06] MEDS ORDERED: LUNESTA2 MG PO (13:26)
[2017-10-06] MEDS ORDERED: BISAC-EVAC10 MG PR (13:27)
[2017-10-06] MEDS ORDERED: MILK OF MAGN PO (13:27)
[2017-10-06] MEDS ORDERED: MULTAQ400 MG PO (13:28)
[2017-10-06] MEDS ORDERED: FLEET ENEMA-AD118 ML PR (13:28)
[2017-10-06] MEDS ORDERED: PROVIGIL200 MG PO (13:28)
[2017-10-06] MEDS ORDERED: LEVO-T25 MCG PO (13:31)
[2017-10-06] MEDS ORDERED: PRILOSEC20 MG PO (13:31)
[2017-10-06] MEDS ORDERED: LASIX40 MG PO (13:31)
[2017-10-06] MEDS ORDERED: TYLENOL REGULA325 MG PO (13:32)
[2017-10-06] MEDS ORDERED: VALTREX50 MG/ML PO (13:33)
[2017-10-06] MEDS ORDERED: BACTRIM,SEPT1 TABLE1 PO (13:33)
[2017-10-06] MEDS ORDERED: KRISTALOSE20 GM PO (13:34)
[2017-10-06] MEDS ORDERED: COPAXONE40 MG/1 ML SC (13:35)
[2017-10-06] MEDS ORDERED: XOLEGEL45 GM TP (13:36)
[2017-10-06 15:13] LABS: CHLORIDE 106 mEq/L (99-109); SODIUM 136 mEq/L (136-147)
[2017-10-06 15:14] LABS: POTASSIUM 6.4 mEq/L (3.7-5.4)
[2017-10-06 15:15] LABS: GLUCOSE 69 mg/dL (70-99)
[2017-10-06 15:19] LABS: CREATININE 2.8 mg/dL (0.6-1.3); GFR ESTIMATE (CALCULATED) 18 mL/min/; UREA NITROGEN (BUN) 40 mg/dL (9-23)
[2017-10-06 15:54] VITALS: BP 90/45
[2017-10-06 20:00] VITALS: BP 100/56
[2017-10-06 20:19] LABS: ALBUMIN 2.7 g/dL (3.2-4.8)
[2017-10-06 20:20] LABS: CHLORIDE 104 mEq/L (99-109); SODIUM 134 mEq/L (136-147)
[2017-10-06 20:22] LABS: GLUCOSE 59 mg/dL (70-99)
[2017-10-06 20:25] LABS: CREATININE 2.8 mg/dL (0.6-1.3); GFR ESTIMATE (CALCULATED) 18 mL/min/; PHOSPHORUS 4.2 mg/dL (2.5-4.9)
[2017-10-06 20:26] LABS: UREA NITROGEN (BUN) 43 mg/dL (9-23)
[2017-10-06 20:33] LABS: POTASSIUM 6.1 mEq/L (3.7-5.4)
[2017-10-06 23:55] VITALS: BP 92/40
[2017-10-07] VITALS (7 sets, daily range): BP systolic 92–118; BP diastolic 38–55
[2017-10-07 05:42] LABS: HEMATOCRIT 26.2 % (36.0-46.0); HEMOGLOBIN 9.2 G/DL (11.9-15.5); MCH 28.9 PG (29.0-34.0); MCHC 35.1 G/DL (30.0-36.0); MCV 82.4 FL (83-99); NRBC (%) 0.2 /100 WBC (0-0); PLATELET COUNT 109 K/uL (156-360); RBC DIS.WIDTH-SD 45.8 % (39-53); RED BLOOD COUNT 3.18 M/uL (3.80-5.20); WHITE BLOOD COUNT 11.4 K/uL (4.1-10.2)
[2017-10-07 05:57] LABS: ALBUMIN 2.6 G/DL (3.2-4.8); ALKALINE PHOSPHATASE 70 IU/L (3-129); ALT (GPT) 24 IU/L (3-49); AST (GOT) 18 IU/L (2-34); CHLORIDE 104 MEQ/L (99-109); CREATININE 2.8 MG/DL (0.6-1.3); DIRECT BILIRUBIN 0.2 mg/dL (0.0-0.3); GFR ESTIMATE (CALCULATED) 18 mL/min/; GLUCOSE 78 mg/dL (70-99); PHOSPHORUS 4.3 mg/dL (2.5-4.9); POTASSIUM 5.8 MEQ/L (3.7-5.4); SODIUM 135 MEQ/L (136-147); TOTAL BILIRUBIN 0.5 MG/DL (0.0-1.0); TOTAL PROTEIN 4.4 G/DL (6.4-8.3); UREA NITROGEN (BUN) 42 mg/dL (9-23)
[2017-10-07 08:36] LABS: BICARBONATE 23.1 mEq/L (22-26); CARBOXY HGB 0 % (0-5); METHEMOGLOBIN 0.3 % (0-1.5); PCO2 34 mm Hg (35-45); PO2 73 mm Hg (80-100); pH 7.44 (7.35-7.45)
[2017-10-07 08:37] LABS: BASE EXCESS -0.7 mEq/L (-3 to +3); COMMENTS - BLOOD GASES A+C+; DEVICE RA; SITE LR; TOTAL RESP RATE 15 resp/min
[2017-10-07 10:12] LABS: APPEARANCE SL.HAZY ((CLEAR)); BILIRUBIN SMALL; BLOOD NEGATIVE; COLOR YELLOW ((YELLOW)); GLUCOSE (STRIP) NEGATIVE; KETONES NEGATIVE; LEUKOCYTES SMALL; NITRITE NEGATIVE; PROTEIN (STRIP) NEGATIVE; SPECIFIC GRAVITY 1.016 (1.000-1.030); UROBILINOGEN 0.2 MG/DL (0.2-1.0)
[2017-10-07 10:26] LABS: BACTERIA RARE /HPF; EPITHELIAL CELLS RARE /HPF; MUCUS TRACE /LPF; RED BLOOD CELLS 0-5 /HPF (0-5); UCUL ADDED? YES
[2017-10-07 16:31] LABS: CHLORIDE 107 mEq/L (99-109); SODIUM 137 mEq/L (136-147)
[2017-10-07 16:33] LABS: GLUCOSE 87 mg/dL (70-99)
[2017-10-07 16:34] LABS: POTASSIUM 4.6 mEq/L (3.7-5.4)
[2017-10-07 16:37] LABS: CREATININE 3.2 mg/dL (0.6-1.3); GFR ESTIMATE (CALCULATED) 16 mL/min/; UREA NITROGEN (BUN) 44 mg/dL (9-23)
[2017-10-08 03:59] VITALS: BP 94/43
[2017-10-08 05:32] LABS: HEMATOCRIT 23.7 % (36.0-46.0); HEMOGLOBIN 8.5 G/DL (11.9-15.5); MCH 29.5 PG (29.0-34.0); MCHC 35.9 G/DL (30.0-36.0); MCV 82.3 FL (83-99); NRBC (%) 0.2 /100 WBC (0-0); PLATELET COUNT 93 K/uL (156-360); RBC DIS.WIDTH-CV 18.6 % (11.8-14.6); RBC DIS.WIDTH-SD 44.5 % (39-53); RED BLOOD COUNT 2.88 M/uL (3.80-5.20); WHITE BLOOD COUNT 8.9 K/uL (4.1-10.2)
[2017-10-08 05:35] LABS: INTER. NORMALIZED RATIO 1.1
[2017-10-08 06:04] LABS: ALBUMIN 2.4 G/DL (3.2-4.8); ALBUMIN 2.5 G/DL (3.2-4.8); ALKALINE PHOSPHATASE 66 IU/L (3-129); ALT (GPT) 23 IU/L (3-49); AST (GOT) 16 IU/L (2-34); CHLORIDE 105 MEQ/L (99-109); CHLORIDE 106 MEQ/L (99-109); CREATININE 3.3 MG/DL (0.6-1.3); GFR ESTIMATE (CALCULATED) 15 mL/min/; GLUCOSE 80 mg/dL (70-99); GLUCOSE 81 mg/dL (70-99); PHOSPHORUS 4.8 mg/dL (2.5-4.9); POTASSIUM 3.7 MEQ/L (3.7-5.4); POTASSIUM 3.8 MEQ/L (3.7-5.4); SODIUM 139 MEQ/L (136-147); TOTAL BILIRUBIN 0.6 MG/DL (0.0-1.0); TOTAL PROTEIN 4.1 G/DL (6.4-8.3); UREA NITROGEN (BUN) 47 mg/dL (9-23)
[2017-10-08 07:30] VITALS: BP 94/40
[2017-10-08 12:10] VITALS: BP 94/66
[2017-10-08 19:51] VITALS: BP 93/65
[2017-10-09] VITALS (7 sets, daily range): BP systolic 85–128; BP diastolic 41–85
[2017-10-09 05:59] LABS: ALBUMIN 3.2 G/DL (3.2-4.8); CHLORIDE 103 MEQ/L (99-109); CREATININE 3.3 MG/DL (0.6-1.3); GFR ESTIMATE (CALCULATED) 15 mL/min/; GLUCOSE 77 mg/dL (70-99); PHOSPHORUS 4.5 mg/dL (2.5-4.9); POTASSIUM 3.2 MEQ/L (3.7-5.4); SODIUM 141 MEQ/L (136-147); UREA NITROGEN (BUN) 49 mg/dL (9-23)
[2017-10-10 03:50] VITALS: BP 111/59
[2017-10-10 06:22] LABS: ALBUMIN 3.4 G/DL (3.2-4.8); CHLORIDE 106 MEQ/L (99-109); CREATININE 2.9 MG/DL (0.6-1.3); GFR ESTIMATE (CALCULATED) 18 mL/min/; GLUCOSE 80 mg/dL (70-99); PHOSPHORUS 3.6 mg/dL (2.5-4.9); POTASSIUM 2.7 MEQ/L (3.7-5.4); SODIUM 141 MEQ/L (136-147); UREA NITROGEN (BUN) 44 mg/dL (9-23)
[2017-10-10 06:56] VITALS: BP 112/65
[2017-10-10 08:39] LABS: MAGNESIUM 2.3 mg/dl (1.3-2.7)
[2017-10-10 11:19] VITALS: BP 111/61
[2017-10-10 17:05] LABS: CHLORIDE 107 MEQ/L (99-109); CREATININE 2.5 MG/DL (0.6-1.3); GFR ESTIMATE (CALCULATED) 21 mL/min/; GLUCOSE 92 mg/dL (70-99); POTASSIUM 2.8 MEQ/L (3.7-5.4); SODIUM 142 MEQ/L (136-147); UREA NITROGEN (BUN) 39 mg/dL (9-23)
[2017-10-10 17:09] VITALS: BP 121/64
[2017-10-10 21:00] VITALS: BP 118/61
[2017-10-11] VITALS: BP 126/71
[2017-10-11 06:16] LABS: CHLORIDE 109 MEQ/L (99-109); CREATININE 2.3 MG/DL (0.6-1.3); GFR ESTIMATE (CALCULATED) 23 mL/min/; GLUCOSE 74 mg/dL (70-99); PHOSPHORUS 2.8 mg/dL (2.5-4.9); SODIUM 143 MEQ/L (136-147); UREA NITROGEN (BUN) 36 mg/dL (9-23)
[2017-10-11 06:18] LABS: CHLORIDE 109 MEQ/L (99-109); CREATININE 2.3 MG/DL (0.6-1.3); GFR ESTIMATE (CALCULATED) 23 mL/min/; GLUCOSE 72 mg/dL (70-99); SODIUM 143 MEQ/L (136-147); UREA NITROGEN (BUN) 36 mg/dL (9-23)
[2017-10-11 06:19] LABS: POTASSIUM 3.7 MEQ/L (3.7-5.4); POTASSIUM 3.8 MEQ/L (3.7-5.4)
[2017-10-11 08:40] VITALS: BP 130/63
[2017-10-11 11:49] VITALS: BP 128/67
[2017-10-11 15:59] VITALS: BP 120/65
[2017-10-11 21:00] VITALS: BP 120/49
[2017-10-12 00:13] VITALS: BP 130/57
[2017-10-12 05:58] LABS: BASOPHIL (%) 0 % (0-1); EOSINOPHIL (%) 2.1 % (0-5); EOSINOPHIL COUNT 0.2 K/uL (0-0.3); HEMATOCRIT 23.4 % (36.0-46.0); IMMATURE GRANULOCYTE (%) 0.8 % (0.0-0.7); LYMPHOCYTE (%) 9.9 % (15-42); MCH 29.9 PG (29.0-34.0); MCHC 34.2 G/DL (30.0-36.0); MONOCYTE (%) 10.7 % (3-12); MONOCYTE COUNT 1.1 K/uL (0-0.8); NEUTROPHIL (%) 76.5 % (45-76); NEUTROPHIL COUNT 7.8 K/uL (1.8-6.4); PLATELET COUNT 113 K/uL (156-360); RBC DIS.WIDTH-CV 20.2 % (11.8-14.6); RBC DIS.WIDTH-SD 50.1 % (39-53); RED BLOOD COUNT 2.68 M/uL (3.80-5.20); WHITE BLOOD COUNT 10.2 K/uL (4.1-10.2)
[2017-10-12 05:59] LABS: MCV 87.3 FL (83-99)
[2017-10-12 06:19] LABS: CHLORIDE 108 MEQ/L (99-109); CREATININE 2.1 MG/DL (0.6-1.3); GFR ESTIMATE (CALCULATED) 26 mL/min/; GLUCOSE 73 mg/dL (70-99); POTASSIUM 3.9 MEQ/L (3.7-5.4); SODIUM 141 MEQ/L (136-147); UREA NITROGEN (BUN) 36 mg/dL (9-23)
[2017-10-12 07:00] VITALS: BP 132/63
[2017-10-12 11:00] VITALS: BP 134/73
[2017-10-12 15:00] VITALS: BP 132/68
[2017-10-12 19:20] VITALS: BP 123/67
[2017-10-12 22:51] VITALS: BP 129/63
[2017-10-13 03:35] VITALS: BP 119/68
[2017-10-13 06:35] LABS: ALBUMIN 3.6 G/DL (3.2-4.8); CHLORIDE 109 MEQ/L (99-109); CREATININE 1.7 MG/DL (0.6-1.3); GFR ESTIMATE (CALCULATED) 33 mL/min/; GLUCOSE 74 mg/dL (70-99); PHOSPHORUS 2.2 mg/dL (2.5-4.9); POTASSIUM 3.6 MEQ/L (3.7-5.4); SODIUM 141 MEQ/L (136-147); UREA NITROGEN (BUN) 33 mg/dL (9-23)
[2017-10-13 06:36] LABS: MAGNESIUM 1.8 mg/dl (1.3-2.7)
[2017-10-13 07:16] VITALS: BP 119/59
[2017-10-13 11:45] VITALS: BP 141/64
[2017-10-13] MEDS ORDERED: CEFTRIAXONE1 G1 IV (13:54)
[2017-10-13] MEDS ORDERED: SPIRONOLACTONE25 MG PO (13:55)
[2017-10-13] MEDS ORDERED: K-DUR20 MEQ PO (13:56)
[2017-10-13 16:46] VITALS: BP 128/61
== END 2017-10-13 17:14 | DRG 441 ==
LOC: EME 10:55 → EDOF 14:09 → 4EAST 14:09 → ENRESERV 14:11 → 4EAST 15:25 → ENRESERV 10-11 14:31 → CANRESERV 10-11 15:57 → ENRESERV 10-11 15:57 → 5EAST 10-11 22:52
PROVIDERS: Emergency Medicine; Hospitalist; Internal Medicine; Internal Medicine Gastroenterology; Internal Medicine Nephrology
DX: K72.90 Hepatic failure, unspecified without coma (principal); G93.41 Metabolic encephalopathy; N17.0 Acute kidney failure with tubular necrosis; T37.0X5A Adverse effect of sulfonamides, initial encounter; N39.0 Urinary tract infection, site not specified; B96.1 Klebsiella pneumoniae [K. pneumoniae] as the cause of diseases classified elsewhere; B96.89 Other specified bacterial agents as the cause of diseases classified elsewhere; E86.0 Dehydration; E87.5 Hyperkalemia; E87.1 Hypo-osmolality and hyponatremia; E87.6 Hypokalemia; G35 Multiple sclerosis; D69.6 Thrombocytopenia, unspecified; E88.09 Other disorders of plasma-protein metabolism, not elsewhere classified; I07.1 Rheumatic tricuspid insufficiency; I27.20 Pulmonary hypertension, unspecified; I48.0 Paroxysmal atrial fibrillation; I45.81 Long QT syndrome; S81.811A Laceration without foreign body, right lower leg, initial encounter; X58.XXXA Exposure to other specified factors, initial encounter; I25.5 Ischemic cardiomyopathy; I12.9 Hypertensive chronic kidney disease with stage 1 through stage 4 chronic kidney disease, or unspecified chronic kidney disease; N18.9 Chronic kidney disease, unspecified; K76.0 Fatty (change of) liver, not elsewhere classified; M79.7 Fibromyalgia; J44.9 Chronic obstructive pulmonary disease, unspecified; G89.29 Other chronic pain; B36.9 Superficial mycosis, unspecified; D64.9 Anemia, unspecified; E03.9 Hypothyroidism, unspecified; G25.81 Restless legs syndrome; G47.30 Sleep apnea, unspecified; K21.9 Gastro-esophageal reflux disease without esophagitis; F32.9 Major depressive disorder, single episode, unspecified; R19.7 Diarrhea, unspecified; R60.0 Localized edema; Z74.01 Bed confinement status; Z79.891 Long term (current) use of opiate analgesic; Z98.84 Bariatric surgery status; E66.9 Obesity, unspecified; Z68.34 Body mass index [BMI] 34.0-34.9, adult
CPT/HCPCS: 36600; 70450; 71045; 76705; 80048; 80048 91; 80053; 80069; 80076; 81003; 82140; 82948; 83735; 83935; 84300; 84484; 85025; 85027; 85610; 87077; 87086; 87186; 93005; 93306; 96365; 96366; 96374; 97530 GP; 99281; 99285; J0696; J1170; J1644; J1815; J1940; J2930; J7030; J7040; J7050; P9047